=== PATIENT | female | born 1960 | race Caucasian/White ===

== ENCOUNTER 2018-05-27 22:42 | Emergency (ER) | payer MEDICAID ==
[~2018-05-27] VITALS: Ht 162.6 cm; Wt 73.5 kg
[2018-05-27] MEDS ORDERED: ASPIRIN ADULT L81 M5 (23:31)
[2018-05-27] MEDS ORDERED: ATORVASTATIN CA40 M1 (23:31)
[2018-05-27] MEDS ORDERED: BENAZEPRIL HYDR20 M1 (23:32)
[2018-05-27] MEDS ORDERED: GOOD SENSE OMEP20 MG (23:32)
[2018-05-27] MEDS ORDERED: METFORMIN500 M1 (23:32)
[2018-05-27] MEDS ORDERED: LANTUS SOLOS100 U/M1 (23:32)
[2018-05-27 23:42] LABS: microscopic required? YES; urine erythrocyte TRACE (NEGATIVE)
[2018-05-27 23:43] LABS: BASOPHIL % 0.8 % (0-2); PLATELET COUNT 350 x10^3mcL (130-400); RED CELL DISTRIBUTION WIDTH 13.3 % (11.5-14.5)
[2018-05-28 00:06] LABS: ALKALINE PHOSPHATASE 84 U/L (46-116); ALT/SGPT 29 U/L (14-59); AST/SGOT 11 U/L (15-37); BILIRUBIN TOTAL 0.2 mg/dL (0.20-1.00); CALCIUM 9.3 mg/dL (8.5-10.1); CARBON DIOXIDE 27.1 mmol/L (21-32); CHLORIDE SERUM 95 mmol/L (98-107); GFR1 > 60 mL/min; POTASSIUM SERUM 3.9 mmol/L (3.5-5.1); SODIUM SERUM 132 mmol/L (136-145); TOTAL PROTEIN, SERUM 7.5 g/dL (6.4-8.2)
[2018-05-28 00:08] LABS: ALBUMIN 3.3 g/dL (3.4-5.0)
[2018-05-28 00:09] LABS: GLUCOSE SERUM 464 mg/dL (74-106)
[2018-05-28 02:05] VITALS: BP 164/78
== END 2018-05-28 02:05 | disposition home or self-care (01) ==
LOC: ED 22:42
PROVIDERS: Emergency Medicine
DX: E11.65 Type 2 diabetes mellitus with hyperglycemia (principal); N39.0 Urinary tract infection, site not specified; I10 Essential (primary) hypertension; Z90.89 Acquired absence of other organs; Z90.49 Acquired absence of other specified parts of digestive tract; Z98.51 Tubal ligation status; Z98.890 Other specified postprocedural states
CPT/HCPCS: 82962; 83880; J1885; J7030